=== PATIENT | male | born 1970 | race Hispanic/Latino ===

== ENCOUNTER 2020-01-18 11:19 | Emergency (ER) | payer OTHER ==
[2020-01-18 11:55] LABS: #Lymphocytes 0.9 thou/uL (1.20-3.40); #Monocytes 0.6 thou/uL (0.11-0.59); #Neutrophils 7.7 thou/uL (1.40-6.50); %Basophils 0.3 % (0.0-1.0); %Eosinophils 0.1 % (0.0-10.0); %Lymphocytes 9.2 % (21.0-51.0); %Monocytes 6.8 % (0.0-10.0); %Neutrophils 83.6 % (42.0-75.0); Hemoglobin 15.7 g/dL (14.0-18.0); Mean Corpuscular HGB CONC 33.3 g/dL (32.0-36.0); Mean Corpuscular Hemoglobin 30.9 pg (27.0-31.0); Mean Corpuscular Volume 92.9 fL (78.0-98.0); Mean Platelet Volume 7.1 fL (7.4-10.4); Platelet Count 261 thou/uL (130-400); RBC Distribution Width 11.9 % (11.5-14.5); Red Blood Cell (RBC) Count 5.06 mill/uL (4.70-6.10); White Blood Cell (WBC) Count 9.2 thou/uL (4.8-10.8)
[2020-01-18 12:19] LABS: ALT (SGPT) 59 U/L (8-55); AST (SGOT) 46 U/L (5-34); Albumin 3.9 g/dL (3.5-5.0); Alkaline Phosphatase 146 U/L (40-110); Anion Gap 13 mmol/L (10-20); BUN (Urea Nitrogen) 15 mg/dL (8.9-20.6); Bilirubin, Total 0.8 mg/dL (0.2-1.2); Calc. Creatinine Clearance 0 mL/min (70-130); Calcium 8.7 mg/dL (7.8-10.44); Carbon Dioxide 26 mmol/L (22-29); Chloride 104 mmol/L (98-107); Estimated GFR-MDRD Greater than 90; Globulin 3.8 g/dL (2.4-3.5); Glucose 86 mg/dL (70-105); Potassium 3.6 mmol/L (3.5-5.1); Protein, Total 7.7 g/dL (6.0-8.3); Sodium 139 mmol/L (136-145)
--- NOTE | 2020-01-18 12:34 | RAD ---
PORTABLE CHEST 1 VIEW: Date: 01/18/2020 Time: 1211 hours HISTORY: Increased shortness of breath and fever. COVID-positive. FINDINGS/IMPRESSION: The heart size is normal. There are patchy infiltrates in the lower lung kam. No pneumothoraces or pleural effusions are noted. Findings are suspicious for COVID-19 pneumonia. POS: [facility]
== END 2020-01-18 13:25 | disposition home or self-care (01) ==
LOC: ERS 11:19
DX: U07.1 COVID-19 (principal); J12.89 Other viral pneumonia
CPT/HCPCS: 71045; 80053; 83605; 85025; 94760